=== PATIENT | female | born 1940 | race Caucasian/White ===

== ENCOUNTER 2018-04-15 10:04 | Emergency (ER) | payer BC ==
[2018-04-15 10:21] VITALS: TEMP 98.8; BMI 28.3
[2018-04-15] MEDS ORDERED: SODIUM CHLORIDE 0.9% 500 ML INFUS.BAG IV ONE (10:39)
[2018-04-15 11:06] LABS: BASO % 0.4 % (0-2.0); EOS % 0.6 % (0-4.5); HEMOGLOBIN 13.1 GM/dl (10.7-15.3); LYMPH % 10.6 % (8-40); MCH 32.7 pg (25.7-33.7); MCHC 34.5 g/dl (32.0-36.0); MEAN CELL VOLUME 94.9 fl (80-96); MONO % 6.8 % (3.8-10.2); NEUT % 81.6 % (42.8-82.8); PLATELET COUNT 299 K/MM3 (134-434); RDW 12.6 % (11.6-15.6); WHITE BLOOD COUNT 9.9 K/mm3 (4.0-10.8)
--- NOTE | 2018-04-15 11:13 | PDOC ---
History of Present Illness - General Chief Complaint: Lightheaded Stated Complaint: DIZZINESS Time Seen by Provider: 04/15/18 10:06 - History of Present Illness Initial Comments: 04/15/18 11:08 77-year-old female with a history of hypertension, hypothyroidism, back pain presents to the emergency Department with unsteadiness since she woke up at 4 AM this morning. Patient reports when she stands, she feels that she is wobbling from side to side. She also reports nausea. Denies headache, focal weakness or numbness. Denies room spinning or lightheadedness. Denies speech deficits or visual changes. Patient has been taking baclofen since last Thursday ( 05/06) for back pain and was initiated on medrol dose pack this past Thursday (04/12 ) by Dr. Farrar for her back pain. No other new medications. Pt also reports urinary frequency, and sensation of thirst for 3 days. Denies dysuria. Denies f/c, cp, sob, abd pain, LE edema, rashes. Past History - Past Medical History Allergies/Adverse Reactions: Allergies Allergy/AdvReac Type Severity Reaction Status Date / Time No Known Allergies Allergy Verified 04/15/18 10:05 Home Medications: Ambulatory Orders Baclofen 10 mg PO BID 04/15/18 Levothyroxine [Synthroid -] 75 mcg PO DAILY 04/15/18 Valsartan 160 mg PO DAILY 04/15/18 COPD: No HTN: Yes Hypercholesterolemia: Yes Seizures: Yes - Surgical History Appendectomy: Yes - Suicide/Smoking/Psychosocial Hx Smoking History: Former smoker Have you smoked in the past 12 months: No Information on smoking cessation initiated: No Hx Alcohol Use: (social) Review of Systems - Review of Systems Comments:: 04/15/18 11:12 GENERAL/CONSTITUTIONAL: No fever or chills. No weakness. +unsteadiness HEAD, EYES, EARS, NOSE AND THROAT: No change in vision. No ear pain or discharge. No sore throat. GASTROINTESTINAL: + nausea, no vomiting, diarrhea or constipation. GENITOURINARY: No dysuria, +frequency CARDIOVASCULAR: No chest pain or shortness of breath. RESPIRATORY: No cough, wheezing, or hemoptysis. MUSCULOSKELETAL: No joint or muscle swelling or pain. No neck or back pain. SKIN: No rash NEUROLOGIC: No headache, vertigo, loss of consciousness, or change in strength/ sensation. ENDOCRINE: No increased thirst. No abnormal weight change. HEMATOLOGIC/LYMPHATIC: No anemia, easy bleeding, or history of blood clots. ALLERGIC/IMMUNOLOGIC: No hives or skin allergy. *Physical Exam - Vital Signs Last Vital Signs Temp Pulse Resp BP Pulse Ox 98.8 F 82 18 154/93 100 04/15/18 10:04 04/15/18 10:45 04/15/18 10:45 04/15/18 10:45 04/15/18 10:45 - Physical Exam Comments: 04/15/18 11:13 GENERAL: Awake, alert, and fully oriented, in no acute distress HEAD: No signs of trauma EYES: PERRLA, EOMI, sclera anicteric, conjunctiva clear ENT: Auricles normal inspection, hearing grossly normal, nares patent, oropharynx clear without exudates. Moist mucosa NECK: Normal ROM, supple, no lymphadenopathy, JVD, or masses LUNGS: Breath sounds equal, clear to auscultation bilaterally. No wheezes, and no crackles HEART: Regular rate and rhythm, normal S1 and S2, no murmurs, rubs or gallops ABDOMEN: Soft, nontender, normoactive bowel sounds. No guarding, no rebound. No masses EXTREMITIES: Normal range of motion, no edema. No clubbing or cyanosis. No cords, erythema, or tenderness NEUROLOGICAL: Normal speech, cranial nerves intact, negative pronator drift, 5/ 5 strength in all 4 extremities, normal sensation to light touch in all 4 extremities, normal cerebellar exam, normal gait, normal reflexes and tone. SKIN: Warm, Dry, normal turgor, no rashes or lesions noted. When pt asks to stand, reports subjective sensation of unsteadiness to both sides. Orthostatic VS negative. Heart Score/ECG Review #1 04/15/18 13:48 Twelve-lead EKG was performed and reviewed by me. Normal sinus rhythm, rate 79. Normal axis and intervals. No ST elevations or T-wave inversions. ED Treatment Course - LABORATORY CBC & Chemistry Diagram: 04/15/18 10:45 04/15/18 10:45 - RADIOLOGY Radiology Studies Ordered: Category Date Time Status HEAD CT WITHOUT CONTRAST [CT] Stat CT Scan 04/15/18 10:39 Ordered - Medications Given in the ED: ED Medications Discontinued Medications Generic Name Dose Route Start Last Admin Trade Name Misael PRN Reason Stop Dose Admin Sodium Chloride 1,000 ml 04/15/18 10:39 04/15/18 10:50 Normal Saline - IV 04/15/18 10:40 1,000 ml ONCE ONE Administration Medical Decision Making - Medical Decision Making 04/15/18 11:14 77yo F hx HTN, hypothyroid presents to the ED with unsteadiness. Vitals and exam wnl, pt is neuro intact. Could be dehydration as pt reports thirst and urinary frequency maybe due to UTI? Will check electrolytes as well and CTH for neuro abnormalities. 04/15/18 12:30 Labs wnl, UA negative. MIld improvement in sxs but states still reproducible "wooziness" by moving her head right and left. Pt also adds that 2 weeks ago, she had cerumen impaction and had her ear flushed. On inspection, no evidence of TM rupture. Possible BPPH? Will treat with meclizine and reassess. 04/15/18 13:30 Pt states symptoms moderately improved. Now more so having her back pain for which she has an MRI scheduled at 4 today. Pt requests to be DC to get the MRI. I told her I would discuss with Dr. Mcginnis as he sent her in to the ED. IV tylenol ordered 04/15/18 13:[address] Farrar, discussed all labs, CTH, UA results. He states symptoms may be 2/2 ambien with baclofen. He recommends DC her but advising her to stop ambien and baclofen. Will discuss with pt 04/15/18 14:31 PT states she is not taking ambien. Advised her to stop baclofen. Feels significantly better with regards to unsteadiness, is ambulating in ED with steady gait. IV tylenol helped w pain. Pt requests DC home. Gave her strict return precautions if sxs return or get worse. I discussed the physical exam findings, ancillary test results and final diagnoses with the patient. I answered all of the patient's questions. The patient was satisfied with the care received and felt comfortable with the discharge plan and treatment plan. The patient will call their primary care physician within 24 hours to arrange follow-up and will return to the Emergency Department with any new, persistent or worsening symptoms. *DC/Admit/Observation/Transfer Diagnosis at time of Disposition: Generally unsteady - Discharge Dispostion Disposition: HOME Condition at time of disposition: Improved - Referrals Referrals: Diaz Meraz MD [Primary Care Provider] - - Patient Instructions Additional Instructions: Stop taking the baclofen. Follow up with Dr. John in 1-2 days. As discussed, return to the emergency department if you have any new, worsening, or concerning symptoms. - Post Discharge Activity - Attestations Physician Attestion: 04/15/18 14:34 I, Dr. Negar Lemus MD, attest that this document has been prepared under my direction and personally reviewed by me in its entirety. I further attest, that it accurately reflects all work, treatment, procedures and medical decision -making performed by me.
[2018-04-15 11:17] LABS: ALBUMIN 3.9 g/dl (3.5-5.0); ALK PHOS 60 U/L (32-92); ANION GAP 4 (8-16); BILIRUBIN,TOTAL 0.5 mg/dl (0.2-1.0); BLOOD UREA NITROGEN 19 mg/dl (7-18); CALCIUM 9.3 mg/dl (8.4-10.2); CHLORIDE 109 mmol/L (98-107); CO2 25 mmol/L (22-28); GLUCOSE,RANDOM 104 mg/dl (74-106); POTASSIUM 4.6 mmol/L (3.5-5.1); SGOT/AST 23 U/L (10-42); SGPT/ALT 26 U/L (10-40); SODIUM 138 mmol/L (136-145); TOT PROT 6.7 g/dl (6.4-8.3)
[2018-04-15 11:18] LABS: CREATININE < 0.8 mg/dl (0.6-1.3)
[2018-04-15] MEDS ORDERED: MECLIZINE HCL 25 MG TABLET (FP) ONE ×2 (12:05→12:36)
[2018-04-15 12:17] LABS: URINE APPEARANCE Clear; URINE BILIRUBIN Negative (NEGATIVE); URINE BLOOD Negative (NEGATIVE); URINE GLUCOSE (UA) Negative (NEGATIVE); URINE KETONE Negative (NEGATIVE); URINE LEUK ESTERASE Negative (NEGATIVE); URINE NITRITE Negative (NEGATIVE); URINE PROTEIN Negative (NEGATIVE); URINE UROBILINOGEN 0.2 (0.2-1.0)
[2018-04-15 12:19] LABS: URINE COLOR AMBER
[2018-04-15] MEDS ORDERED: MECLIZINE HCL 25 MG TABLET (FP) PO ONE (12:30)
[2018-04-15] MEDS ORDERED: VALSARTAN 160 MG TABLET (UD) PO ONE (12:54)
[2018-04-15] MEDS ORDERED: ACETAMINOPHEN 1000 MG/100 ML VIAL (NON FORMULARY) IVPB ONE (13:44)
[2018-04-15] MEDS ORDERED: ACETAMINOPHEN INJECTION 100 ML IVPB ONE (13:44)
[2018-04-15 13:50] VITALS: BP 157/74; PULSE 78
--- NOTE | 2018-04-16 10:32 | EKG ---
Test Reason : Blood Pressure : / mmHG Vent. Rate : 079 BPM Atrial Rate : 079 BPM P-R Int : 160 ms QRS Dur : 064 ms QT Int : 372 ms P-R-T Axes : 057 -04 020 degrees QTc Int : 426 ms NORMAL SINUS RHYTHM INFERIOR INFARCT , AGE UNDETERMINED ABNORMAL ECG Confirmed by SONY STARK MD ([id number]) on 04/16/2018 10:32:27 AM Referred By: SUSAN GARCIA Confirmed By:SONY STARK MD
== END 2018-04-15 14:40 | disposition home or self-care (01) ==
LOC: FER 10:04
PROC: 3E0337Z Introduction of Electrolytic and Water Balance Substance into Peripheral Vein, Percutaneous Approach (ICD-10-PCS; principal; 2018-04-15)
PROC: 3E033NZ Introduction of Analgesics, Hypnotics, Sedatives into Peripheral Vein, Percutaneous Approach (ICD-10-PCS; 2018-04-15)
DX: R26.81 Unsteadiness on feet (principal); I10 Essential (primary) hypertension; E03.9 Hypothyroidism, unspecified
CPT/HCPCS: 36415; 70450-TC; 80053; 81003; 84484; 85025; 87086; 93005; 99285-25; J0131